=== PATIENT | male | born 1945 | race Caucasian/White ===

== ENCOUNTER 2018-11-27 14:44 | Inpatient (IN) | payer MEDICARE, BC ==
[~2018-11-27] VITALS: Ht 170.2 cm; Wt 77.3 kg
[2018-11-27] MEDS ORDERED: GABA300C10 PO (14:57)
[2018-11-27] MEDS ORDERED: ROSU20TA2 PO (14:57)
[2018-11-27] MEDS ORDERED: CARTIA (14:57)
[2018-11-27] MEDS ORDERED: RIVA20TA PO (14:57)
[2018-11-27] MEDS ORDERED: SERT25TA3 PO (14:57)
--- NOTE | 2018-11-27 14:59 | NUR ---
PT TO ED FOR LLQ ABD PAIN X A FEW DAYS. CONNECTED TO MONITORS. VSS. EDMD PRESENT FOR ASSESSMENT. AWAITING ORDERS.
--- NOTE | 2018-11-27 15:07 | NUR ---
report to [facility].
[2018-11-27] MEDS ORDERED: ONDANSETRON 2MG/ML, 2ML ONE (15:09)
[2018-11-27] MEDS ORDERED: MORPHINE SULFATE 4 MG/ML, 1ML ONE (15:10)
--- NOTE | 2018-11-27 15:20 | NUR ---
LATE ENTRY: pt care PIV started, labs drawn and sent to lab. IV meds given after 5 rights checked.
--- NOTE | 2018-11-27 15:21 | NUR ---
Urine sample collected and walked to lab.
[2018-11-27] MEDS ORDERED: MORPHINE SULFATE 4 MG/ML, 1ML IVPush PRN (15:30)
[2018-11-27] MEDS ORDERED: ONDANSETRON 2MG/ML, 2ML IVPush ONE (15:30)
[2018-11-27] MEDS ORDERED: SODIUM CHLORIDE 0.9% 1,000ML IVBOLUS ONE (15:30)
--- NOTE | 2018-11-27 15:34 | NUR ---
IVF running, pt is NPO, per physician for LLQ pain. Pt aware of plan for CT scan, labs pending.
[2018-11-27 15:53] LABS: BASOPHILS # (AUTO) 0.06 x10^3/uL (0-0.1); BASOPHILS % (AUTO) 1 % (0-1); EOSINOPHILS # (AUTO) 0.04 x10^3/uL (0-0.4); EOSINOPHILS % (AUTO) 0 % (1-7); LYMPHOCYTES # (AUTO) 1.55 x10^3/uL (1-3.4); LYMPHOCYTES % (AUTO) 13 % (22-44); MD NO; MEAN CORPUSCULAR HEMOGLOBIN 30.9 pg (27.5-34.5); MEAN CORPUSCULAR HGB CONC 31.8 g/dL (33.2-36.2); MEAN CORPUSCULAR VOLUME 97.3 fL (81-97); MEAN PLATELET VOLUME 9.5 fL (7.4-10.4); MONOCYTES # (AUTO) 0.87 x10^3/uL (0.2-0.8); MONOCYTES % (AUTO) 7 % (2-9); NEUTROPHILS # (AUTO) 9.62 x10^3/uL (1.8-6.8); NEUTROPHILS % (AUTO) 79 % (42-75); PLATELET COUNT 171 x10^3/uL (130-400); RED BLOOD COUNT 5.16 x10^6/uL (4.38-5.82); RED CELL DISTRIBUTION WIDTH 14.2 % (9.4-14.8)
[2018-11-27 15:54] LABS: ALBUMIN 3.7 g/dL (3.4-5.0); ANION GAP 6 mmol/L (5-15); CALCIUM 9.5 mg/dL (8.5-10.1); CHLORIDE 103 mmol/L (98-107)
[2018-11-27 15:55] LABS: MICROSCOPIC AUTO
[2018-11-27 15:57] LABS: CULTURE INDICATED? NO
[2018-11-27 15:58] LABS: ALANINE AMINOTRANSFERASE 32 U/L (12-78); ALKALINE PHOSPHATASE 96 U/L (45-117); BILIRUBIN,TOTAL 0.9 mg/dL (0.2-1.0); CREATININE 0.82 mg/dL (0.7-1.3); TOTAL PROTEIN 8.3 g/dL (6.4-8.2)
[2018-11-27] MEDS ORDERED: SODIUM CHLORIDE FLUSH 10ML SYR IVF ONE (16:00)
--- NOTE | 2018-11-27 16:16 | NUR ---
Pt to imaging, with tech, via [facility].
[2018-11-27] MEDS ORDERED: OMNIPAQUE 350 MG/ML, 100ML BOTTLE ONE (16:29)
--- NOTE | 2018-11-27 16:30 | NUR ---
Pt back to room from imaging.
[2018-11-27] MEDS ORDERED: PIPERACILLIN/TAZO/PMX 3.375GM 50 ML ONE (16:57)
[2018-11-27] MEDS ORDERED: PIPERACILLIN/TAZO/PMX 3.375GM 50 ML IV ONE (17:00)
--- NOTE | 2018-11-27 17:02 | NUR ---
ABX ordered acknowledge, POC discussed with ERP. ERP to place orders for BCs to be drawn prior to admin of ABX.
--- NOTE | 2018-11-27 17:35 | NUR ---
Lab at bedside for BC x 2. Pt aware of plan for IV ABX after blood draw.
--- NOTE | 2018-11-27 18:09 | NUR ---
IV ABX started after successful 2nd blood culture draw.
--- NOTE | 2018-11-27 18:30 | NUR ---
Telephone SBAR report given to Leti ALMONTE. Pt and made aware of new room assignment.
[2018-11-27] MEDS ORDERED: ONDANSETRON 2MG/ML, 2ML IVPush PRN (20:30)
[2018-11-27] MEDS ORDERED: ACETAMINOPHEN 325 MG TABLET PO PRN (20:30)
[2018-11-27] MEDS ORDERED: LIDODERM 5% PATCH TD PRN (20:30)
[2018-11-27] MEDS ORDERED: hydrALAzine 20 MG/ML, 1ML IVPush PRN (20:30)
[2018-11-27] MEDS ORDERED: TEMAZEPAM 15 MG CAPSULE PO PRN (20:30)
[2018-11-27] MEDS ORDERED: GABAPENTIN 100 MG CAPSULE ONE (20:56)
[2018-11-27 21:00] VITALS: BP 110/75
[2018-11-27] MEDS ORDERED: GABAPENTIN 300 MG CAPSULE PO SCH (21:00)
[2018-11-27] MEDS: ATORVASTATIN 40 MG TABLET PO SCH (21:00)
[2018-11-27] MEDS: morphine SULFATE 10 MG/ML, 1ML IVPush PRN (21:00)
[2018-11-27] MEDS: GABAPENTIN 100 MG CAPSULE PO SCH (21:00)
[2018-11-27] MEDS: D5%-0.45% NACL 1,000 ML IV SCH (21:00)
[2018-11-27] MEDS: PIPERACILLIN/TAZO/PMX 3.375GM 50 ML IV SCH (23:47)
[2018-11-28 00:08] VITALS: BP 101/66
[2018-11-28] MEDS: D5%-0.45% NACL 1,000 ML IV SCH ×2 (05:34→21:38)
[2018-11-28] MEDS: PIPERACILLIN/TAZO/PMX 3.375GM 50 ML IV SCH ×3 (05:34→19:53)
[2018-11-28 05:57] LABS: ANION GAP 5 mmol/L (5-15); CALCIUM 8.1 mg/dL (8.5-10.1); CHLORIDE 107 mmol/L (98-107); CREATININE 0.73 mg/dL (0.7-1.3)
[2018-11-28 06:48] LABS: BASOPHILS # (AUTO) 0.04 x10^3/uL (0-0.1); BASOPHILS % (AUTO) 0 % (0-1); EOSINOPHILS # (AUTO) 0.11 x10^3/uL (0-0.4); EOSINOPHILS % (AUTO) 1 % (1-7); LYMPHOCYTES # (AUTO) 1.43 x10^3/uL (1-3.4); LYMPHOCYTES % (AUTO) 14 % (22-44); MD NO; MEAN CORPUSCULAR HGB CONC 33.7 g/dL (33.2-36.2); MEAN CORPUSCULAR VOLUME 97.9 fL (81-97); MEAN PLATELET VOLUME 9.4 fL (7.4-10.4); MONOCYTES % (AUTO) 10 % (2-9); NEUTROPHILS # (AUTO) 7.35 x10^3/uL (1.8-6.8); NEUTROPHILS % (AUTO) 74 % (42-75); PLATELET COUNT 147 x10^3/uL (130-400); RED BLOOD COUNT 4.43 x10^6/uL (4.38-5.82); RED CELL DISTRIBUTION WIDTH 14.4 % (9.4-14.8)
[2018-11-28] MEDS: SERTRALINE 50MG TABLET PO SCH (09:00)
[2018-11-28] MEDS: GABAPENTIN 100 MG CAPSULE PO SCH ×2 (09:00→21:38)
[2018-11-28 09:33] VITALS: BP 94/63
[2018-11-28] MEDS ORDERED: FLUMAZENIL 0.1 MG/1 ML, 5ML ONE (10:46)
[2018-11-28] MEDS ORDERED: FENTANYL PF 100 MCG/2ML ONE (10:46)
[2018-11-28] MEDS ORDERED: MIDAZOLAM 1 MG/ML, 5ML ONE (10:46)
[2018-11-28] MEDS ORDERED: NALOXONE 1 MG/ML, 2ML ONE (10:46)
[2018-11-28 12:42] VITALS: BP 97/61
[2018-11-28] MEDS ORDERED: VANCOMYCIN PER PHARMACY MC PRN (14:30)
[2018-11-28 15:00] VITALS: BP 102/68
[2018-11-28] MEDS ORDERED: PHARMACOKINETIC MONITORING MC PRN (15:00)
[2018-11-28] MEDS ORDERED: PHARMACOKINETIC CONSULTATION MC ONE (15:00)
[2018-11-28] MEDS: morphine SULFATE 10 MG/ML, 1ML IVPush PRN (15:06)
[2018-11-28] MEDS: VANCOMYCIN 1,500 MG in SODIUM CHLORIDE 0.9% 250 ML IV SCH (15:06)
[2018-11-28 19:20] VITALS: BP 111/62
[2018-11-28] MEDS: ATORVASTATIN 40 MG TABLET PO SCH (21:38)
[2018-11-29 00:40] VITALS: BP 96/60
[2018-11-29] MEDS: PIPERACILLIN/TAZO/PMX 3.375GM 50 ML IV SCH ×4 (01:37→20:11)
[2018-11-29] MEDS: D5%-0.45% NACL 1,000 ML IV SCH ×2 (05:46→21:04)
[2018-11-29 05:47] LABS: ANION GAP 4 mmol/L (5-15); CALCIUM 8.4 mg/dL (8.5-10.1); CHLORIDE 109 mmol/L (98-107)
[2018-11-29 05:50] LABS: CREATININE 0.84 mg/dL (0.7-1.3)
[2018-11-29 06:19] VITALS: BP 106/71
[2018-11-29] MEDS: SERTRALINE 50MG TABLET PO SCH (08:58)
[2018-11-29] MEDS: GABAPENTIN 100 MG CAPSULE PO SCH ×2 (08:58→20:11)
[2018-11-29 14:50] VITALS: BP 116/80
[2018-11-29] MEDS: VANCOMYCIN 1,500 MG in SODIUM CHLORIDE 0.9% 250 ML IV SCH (15:15)
[2018-11-29 19:29] VITALS: BP 115/68
[2018-11-29] MEDS: ATORVASTATIN 40 MG TABLET PO SCH (20:11)
[2018-11-30] MEDS: PIPERACILLIN/TAZO/PMX 3.375GM 50 ML IV SCH ×4 (01:57→20:13)
[2018-11-30 02:22] VITALS: BP 108/61
[2018-11-30] MEDS: D5%-0.45% NACL 1,000 ML IV SCH (05:02)
[2018-11-30 07:42] VITALS: BP 116/77
[2018-11-30] MEDS: GABAPENTIN 100 MG CAPSULE PO SCH ×2 (07:56→20:13)
[2018-11-30] MEDS: SERTRALINE 50MG TABLET PO SCH (07:57)
[2018-11-30] MEDS: RIVAROXABAN 20 MG TABLET PO SCH (11:26)
[2018-11-30 13:24] VITALS: BP 108/73
[2018-11-30 20:04] VITALS: BP 113/75
[2018-11-30] MEDS: ATORVASTATIN 40 MG TABLET PO SCH (20:13)
[2018-12-01] MEDS: PIPERACILLIN/TAZO/PMX 3.375GM 50 ML IV SCH ×2 (02:10→08:52)
[2018-12-01 03:21] VITALS: BP 103/66
[2018-12-01 07:34] VITALS: BP 117/81
[2018-12-01] MEDS: SERTRALINE 50MG TABLET PO SCH (08:52)
[2018-12-01] MEDS: GABAPENTIN 100 MG CAPSULE PO SCH (08:52)
[2018-12-01] MEDS: RIVAROXABAN 20 MG TABLET PO SCH (08:52)
[2018-12-01] MEDS ORDERED: CIPR500T87 PO (09:00)
[2018-12-01] MEDS ORDERED: METR500T PO (09:00)
[2018-12-01] MEDS ORDERED: OXYC-302 PO (09:01)
== END 2018-12-01 11:30 | disposition home or self-care (01) | DRG 872 ==
LOC: ED 17:24 → EDIP 17:25 → 3NE 18:53 → DCLOUNGE 12-01 11:20
PROVIDERS: ADMIT Internal Medicine; ATTEND Internal Medicine
PROC: 0D9N30Z Drainage of Sigmoid Colon with Drainage Device, Percutaneous Approach (ICD-10-PCS; principal; 2018-11-27)
DX: A41.9 Sepsis, unspecified organism (principal); K57.20 Diverticulitis of large intestine with perforation and abscess without bleeding; I48.1 Persistent atrial fibrillation; F33.0 Major depressive disorder, recurrent, mild; D68.69 Other thrombophilia; K59.00 Constipation, unspecified; M54.5 Low back pain; G89.29 Other chronic pain; J84.10 Pulmonary fibrosis, unspecified; E78.5 Hyperlipidemia, unspecified; N40.0 Benign prostatic hyperplasia without lower urinary tract symptoms; Z79.01 Long term (current) use of anticoagulants; Z80.0 Family history of malignant neoplasm of digestive organs; Z85.038 Personal history of other malignant neoplasm of large intestine; Z87.891 Personal history of nicotine dependence; Z79.899 Other long term (current) drug therapy
CPT/HCPCS: 36415; 49405; 74177; 80048; 80053; 81001; 83605; 83690; 83735; 85025; 87015; 87040; 87070; 87075; 87076; 87116; 87205; 87206; 96374; 96375; G0103; G0378; J2250; J2405; J2543; J3010; J3370; Q9967; J2270; J2310; J7030; J7050